=== PATIENT | female | born 1960 | race Caucasian/White ===

== ENCOUNTER 2020-12-30 09:20 | Emergency (ER) | payer OTHER ==
[2020-12-30 10:08] LABS: HEMOGLOBIN 17.1 gm/dl (12.3-15.3); RED BLOOD COUNT 5.06 M/UL (4.00-5.10); WHITE BLOOD COUNT 9.2 K/UL (4.5-11.0)
[2020-12-30 10:33] LABS: BUN/CREATININE RATIO 16 (0-10)
[2020-12-30] MEDS ORDERED: OMEPRAZOLE20 M1 PO (16:35)
== END 2020-12-30 16:30 | disposition home or self-care (01) ==
LOC: ER1 09:20
PROVIDERS: Physician Assistant
DX: D25.9 Leiomyoma of uterus, unspecified (principal); F17.200 Nicotine dependence, unspecified, uncomplicated; Z88.0 Allergy status to penicillin; Z88.2 Allergy status to sulfonamides
CPT/HCPCS: 71045; 80053; 81001; 82550; 82553; 83690; 83874; 84484; 85025; 93005; 96374; 99284; C9113; J7030; Q9967

== ENCOUNTER → 2021-01-31 | Outpatient (CLI) | payer OTHER ==
[~2021-01-31] MED LIST: OMEPRAZOLE20 M1 PO
== END ==
LOC: HEART 5 09:52
DX: J44.9 Chronic obstructive pulmonary disease, unspecified (principal)
CPT/HCPCS: 94060

== ENCOUNTER → 2021-07-06 | Outpatient (CLI) | payer OTHER | LOC: KOH-I 06-24 09:30 | DX: R10.13 Epigastric pain (principal); F17.210 Nicotine dependence, cigarettes, uncomplicated; R91.8 Other nonspecific abnormal finding of lung field; K76.0 Fatty (change of) liver, not elsewhere classified | CPT/HCPCS: 71271; 76700 ==

== ENCOUNTER → 2021-10-14 | Outpatient (CLI) | payer OTHER | LOC: CT 08:26 | DX: K52.9 Noninfective gastroenteritis and colitis, unspecified (principal); K76.0 Fatty (change of) liver, not elsewhere classified; K57.30 Diverticulosis of large intestine without perforation or abscess without bleeding | CPT/HCPCS: 36415; 82565; 84520; Q9967 ==